=== PATIENT | male | born 1965 | race Two or more races ===

== ENCOUNTER 2021-06-12 21:15 | Emergency (ER) | payer BC ==
[~2021-06-12] VITALS: Ht 172.7 cm; Wt 77.1 kg
--- NOTE | 2021-06-12 21:40 | NUR ---
Pt brought back into [facility] by prepress technician due to mild CP. pt connected to bedside monitor right away. VSS, pt has good color, temp and appearance. PE WNL, lungs clear bilat. Oxygenating and perfusing well. Complaining of slight to mild chest pain that has since resolved. Denies any nausea or discomfort. Pt awaiting EDMD for eval.
[2021-06-12] MEDS ORDERED: BUPR300T52 PO (21:41)
[2021-06-12] MEDS ORDERED: ALPR0.5T8 PO (21:41)
[2021-06-12] MEDS ORDERED: QUET25TA PO (21:41)
[2021-06-12] MEDS ORDERED: LORA-258 PO (21:51)
--- NOTE | 2021-06-12 21:55 | NUR ---
EDMD at pt bedside for eval and PE. Dr. Morris only ordered some lab work, no meds, diagnostics or procedures ordered.
--- NOTE | 2021-06-12 22:15 | NUR ---
Blood already collected and sent to lab by watch dial maker. Pt doing well, in pos of comfort, resting comfortable, dozzing of to sleep with audible snoriongPt awaiting results of blood work and EDMD consult.
[2021-06-12 23:19] LABS: HEMATOCRIT 38.8 % (36.7-47.1); MEAN CORPUSCULAR HEMOGLOBIN 28.6 uug (23.8-33.4); MEAN CORPUSCULAR VOLUME 84.9 fL (73.0-96.2); PLATELET COUNT (AUTO) 256 K/uL (152-348)
[2021-06-12 23:25] LABS: CARBON DIOXIDE 29 mmol/L (21-32); CHLORIDE 108 mmol/L (98-107); CREATININE 1.2 mg/dL (0.6-1.3); GLUCOSE 95 mg/dL (74-106); POTASSIUM 3.6 mmol/L (3.5-5.1); UREA NITROGEN, BLOOD 14 mg/dL (7-18)
[2021-06-12 23:30] LABS: ALANINE AMINOTRANSFERASE 16 U/L (16-63); ALKALINE PHOSPHATASE 64 U/L (50-136); ASPARTATE AMINOTRANSFERASE 15 U/L (15-37); BILIRUBIN,DIRECT < 0.1 mg/dL (0.0-0.2); BILIRUBIN,TOTAL 0.4 mg/dL (0.2-1.0); TOTAL PROTEIN, SERUM 6.9 g/dL (6.4-8.2)
[2021-06-13 00:29] LABS: MAGNESIUM 2.1 mg/dL (1.8-2.4)
--- NOTE | 2021-06-13 01:17 | NUR ---
EDMD at bedside discussing dispo with pt. Educated pt on lab findings. spent approx 15 min with pt elucidating pt on certain aspects of his health.
--- NOTE | 2021-06-13 01:20 | NUR ---
DC instructions given to Pt, pt confirmed understanding of aftercare and said that he already made an appt to see his PMD within the next week. Pt has great color, temp and appearance. VSS, PE WNL, strong and equal plant operator helper strength bilat, strong and reg pulses x4ext. Lungs clear bilat, NSR without ectopy, RRR without m/g/r. Oxygenating and perfusing well. Denies any pain, nausea or discomfort. No s/sx of distess present.
[2021-06-13 02:45] VITALS: BP 138/91
== END 2021-06-13 01:20 | disposition home or self-care (01) ==
LOC: ER 21:17
DX: F41.9 Anxiety disorder, unspecified (principal); Z98.84 Bariatric surgery status; F32.A Depression, unspecified; Z79.899 Other long term (current) drug therapy
CPT/HCPCS: 36415; 83735; 85025; A4663